=== PATIENT | female | born 1985 | race Caucasian/White ===

== ENCOUNTER 2018-08-24 12:33 | Outpatient (REF) | payer MEDICAID, SELFPAY ==
[2018-08-24 19:10] LABS: HCT 46.3 % (36.0-46.0); HGB 15.3 g/dL (12.0-15.5); Mean Corpuscular Hemoglobin 30.4 pg (27.0-33.0); Platelet Count 276 x1000/uL (130-400); RBC 5.03 m/cumm (4.00-5.20); RBC Distribution Width 13.3 % (11.7-14.6)
[2018-08-24 19:15] LABS: TSH 1.03 uIU/mL (0.358-3.74)
== END 2018-08-24 12:53 ==
LOC: NCHCN 12:33
PROVIDERS: PCP Nurse Practitioner Family; Visit Provider Nurse Practitioner Family
DX: R51 Headache (principal)
CPT/HCPCS: 85027; 83735; 84443

== ENCOUNTER 2021-08-19 14:01 | Outpatient (REF) | payer MEDICAID, SELFPAY ==
[2021-08-19 19:26] LABS: HCG Qual (Serum) Negative
== END 2021-08-19 14:02 | disposition home or self-care (01) ==
LOC: NCHCN 14:01
PROVIDERS: PCP Nurse Practitioner Family; Visit Provider Nurse Practitioner Family
DX: N91.0 Primary amenorrhea (principal)
CPT/HCPCS: 84703